=== PATIENT | female | born 1955 | race Caucasian/White ===

== ENCOUNTER 2018-09-23 16:53 | Emergency (ER) | payer OTHER ==
[~2018-09-23] VITALS: Ht 170.2 cm; Wt 70.3 kg
[2018-09-23] MEDS ORDERED: SYNTHROID150 MCG (17:24)
== END 2018-09-23 22:12 | disposition home or self-care (01) ==
LOC: ER 16:53
DX: G44.209 Tension-type headache, unspecified, not intractable (principal)